=== PATIENT | female | born 1950 | race Caucasian/White ===

== ENCOUNTER 2021-11-20 09:44 | Outpatient (CLI) | payer MEDICARE, BC, SELFPAY ==
[2021-11-20] MEDS: PERFLUTREN LIPID MICROSPHERES 2 ML VIAL IV (10:24)
== END 2021-11-20 09:45 | disposition home or self-care (01) ==
PROVIDERS: PCP Family Medicine; Visit Provider Internal Medicine
DX: I21.3 ST elevation (STEMI) myocardial infarction of unspecified site (principal); I35.1 Nonrheumatic aortic (valve) insufficiency
CPT/HCPCS: 93308; 93321; 93325; Q9957